=== PATIENT | female | born 1965 | race Caucasian/White ===

== ENCOUNTER 2018-07-19 08:39 | Emergency (ER) | payer OTHER ==
[~2018-07-19] VITALS: Ht 149.9 cm; Wt 49.9 kg
[2018-07-19] MEDS ORDERED: ACCUNEB SO1.25 MG/1 INH (09:04)
[2018-07-19 09:31] LABS: ABSOLUTE BASOPHILS 0.1 thou/uL (0.0-0.2); ABSOLUTE EOSINOPHILS 0.1 thou/uL (0.0-0.7); BASOPHILS 0.8 %; EOSINOPHILS 0.7 %; HEMATOCRIT 48.4 % (37.0-47.0); HEMOGLOBIN 16.7 gm/dL (12.0-15.0); LYMPHOCYTES 42.5 %; MCH 32.3 pg (26.0-34.0); MCHC 34.5 g/dL (28.0-37.0); MCV 93.8 fL (80.0-100.0); MONOCYTES 13.7 %; MPV 8.5 fl. (7.2-11.1); NUCLEATED RBCS 0 /100WBC; PLATELET COUNT* 175 thou/uL (150-400); POLYS 42.3 %; RBC 5.16 mil/uL (4.20-5.00); RDW-CV 14.7 % (10.5-14.5); WBC 7.1 thou/uL (4.0-11.0)
[2018-07-19 09:37] LABS: ANION GAP 8 mmol/L (7-16); BUN 7 mg/dL (7-18); CALCIUM 8.9 mg/dL (8.5-10.1); CHLORIDE 99 mmol/L (98-107); CO2 30 mmol/L (21-32); CREATININE 0.6 mg/dL (0.6-1.3); GLUCOSE 99 mg/dL (70-99); POTASSIUM 4.2 mmol/L (3.5-5.1); SODIUM 137 mmol/L (136-145)
[2018-07-19 09:42] LABS: INR 0.9; PROTIME 9.6 Seconds (9.20-11.50)
[2018-07-19 09:49] LABS: ALKALINE PHOSPHATASE 55 U/L (46-116); LIPASE 120 U/L (73-393); NT-PRO BRAIN NAT PEPTIDE 157 pg/mL (<300); SGOT 31 U/L (15-37); SGPT 20 U/L (30-65); TOTAL BILIRUBIN 0.6 mg/dL (<0.1-1.0); TOTAL PROTEIN 6.8 g/dL (6.4-8.2); TROPONIN-I LEVEL <0.06 ng/mL (<0.06)
[2018-07-19 10:24] LABS: AMP/METHAMP Negative (Negative); BARBITURATES Negative (Negative); BENZODIAZEPINES Negative (Negative); COCAINE Negative (Negative); METHADONE Negative (Negative); OPIATES Negative (Negative); PCP Negative (Negative); THC POSITIVE (Negative)
--- NOTE | 2018-07-19 10:55 | EKG ---
[place] [address] ELECTROCARDIOGRAM REPORT Name: NICHOLE APONTE Room: [facility]#: [id number] Admission: 07/19/18 Attend Phys: Discharge: Date of : 67 Report #: [id number] THIS REPORT FOR: //name// [facility] ED Test Date: 2018-07-19 Test Time: 08:46:55 Pat Name: NICHOLE APONTE Department: Room: Gender: F Clinical Physician Assistant: : [id number] Requested By: Brooke Hampton Order Number: [id number] MD: Jeremy Garcia Measurements Intervals [place] Rate: 92 P: 83 [place]: 104 QRS: 79 QRSD: 118 T: 5 QT: 373 QTc: 462 Interpretive Statements Sinus rhythm Short [place] interval Incomplete right bundle branch block No previous ECG available for comparison Electronically Signed On 07-19-2018 10:54:58 CDT by Jereym Garcia [email or web address] <ELECTRONICALLY SIGNED> By: Jeremy Garcia MD, [facility] 07/19/18 [id number] Jeremy Garcia MD, FACC /EPI
[2018-07-19 11:32] LABS: URINE BILIRUBIN NEGATIVE (Negative); URINE BLOOD 2+ (Negative); URINE CLARITY CLEAR; URINE COLOR YELLOW; URINE GLUCOSE-RANDOM NEGATIVE (Negative); URINE KETONES NEGATIVE (Negative); URINE NITRITE-REFLEX NEGATIVE (Negative); URINE PROTEIN NEGATIVE (Negative); URINE SPECIFIC GRAVITY <= 1.005 (1.005-1.030); URINE UROBILINOGEN 0.2 E.U./dl (0.2-1.0)
[2018-07-19 11:39] LABS: URINE LEUKOCYTES-REFLEX 2+ (Negative)
[2018-07-19 11:53] LABS: SQUAMOUS >10 Many /LPF (0-3)
[2018-07-19 11:54] LABS: URINE RBC 3-10 Few /HPF (0-2); URINE WBC-REFLEX 0-5 Rare /HPF (0-5)
[2018-07-19 11:55] LABS: BACTERIA-REFLEX 1-9 Few /HPF (None Seen); CASTS None Seen /LPF (None Seen); CRYSTALS None Seen /LPF (None Seen); MUCUS None Seen strn/LPF (None Seen)
[2018-07-19 11:59] VITALS: BP 121/81
== END 2018-07-19 12:00 | disposition home or self-care (01) ==
LOC: M.ERS 08:39
PROVIDERS: Personal Emergency Response Attendant
DX: R07.89 Other chest pain (principal); F41.9 Anxiety disorder, unspecified; J44.9 Chronic obstructive pulmonary disease, unspecified; Z88.5 Allergy status to narcotic agent